=== PATIENT | male | born 1990 | race Caucasian/White ===

== ENCOUNTER 2017-09-14 23:31 | Emergency (ER) | payer OTHER ==
[2017-09-14] MEDS ORDERED: Bupivacaine 0.5% 50 ML MDV INFILT ONE (23:32)
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
[2017-09-14] MEDS ORDERED: Diphtheria,Pertussis(Acell),Tetanus Vaccine 0.5 ML SDV IM ONE (23:55)
[2017-09-15] MEDS ORDERED: cefTRIAXone 1,000 MG VIAL IM ONE (00:23)
[2017-09-16 19:57] VITALS: BP 129/71
== END 2017-09-15 00:55 | disposition home or self-care (01) ==
LOC: FB.ED 23:31
DX: S51.011A Laceration without foreign body of right elbow, initial encounter (principal); Z23 Encounter for immunization; W26.8XXA Contact with other sharp object(s), not elsewhere classified, initial encounter
CPT/HCPCS: 12001; 90471; 90715; 96372; 99282; J0696